=== PATIENT | male | born 1935 | race Caucasian/White ===

== ENCOUNTER 2020-03-06 00:31 | Inpatient (IN) ==
[2020-03-06 01:17] LABS: Basophils % 0.5 %; Eosinophils # 0.1 K/mcL (0.0-0.6); Eosinophils % 1.7 %; Hemoglobin 12.2 g/dL (12.9-16.9); Immature Granulocytes % 0.3 % (0-4); Lymphocytes # 1.3 K/mcL (0.6-4.6); Lymphocytes % 19.2 %; Mean Corpuscular HGB Conc 33.9 g/dL (31.6-35.5); Mean Corpuscular Volume 97.3 fL (83.0-100.0); Mean Platelet Volume 9.6 fL (9.4-12.4); Monocytes # 0.5 K/mcL (0.0-1.3); Monocytes % 7.9 %; Neutrophils # 4.7 K/mcL (1.6-8.9); Platelet Count 204 K/mcL (140-400); Segmented Neutrophils % 70.4 %; White Blood Count 6.6 K/mcL (4.3-11.1)
[2020-03-06 01:26] LABS: Alanine Aminotransferase 31 Units/L (7-52); Albumin 3.5 g/dL (3.5-5.7); Albumin/Globulin Ratio 1.3 (1.1-2.2); Alkaline Phosphatase 51 Units/L (34-104); Aspartate Amino Transferase 32 Units/L (13-39); BUN/Creatinine Ratio 21 (6-26); Bilirubin,Total 0.6 mg/dL (0.3-1.0); Blood Urea Nitrogen 29 mg/dL (8-23); Calcium 8.5 mg/dL (8.6-10.3); Carbon Dioxide 20 mEq/L (23-29); Chloride 103 mEq/L (98-107); Globulin 2.8 g/dL (2.4-3.5); Glucose 147 mg/dL (70-105); Osmolality,Calculated 285 (280-300); Sodium 133 mEq/L (136-145); Total Protein 6.3 g/dL (6.4-8.9); eGFR For African Americans 59 (> 60); eGFR For Non-African Americans 49 (> 60)
[2020-03-06 01:27] LABS: Troponin I < 0.03 ng/mL (< 0.04)
[2020-03-06] MEDS ORDERED: Albuterol 2.5 MG/3 ML NEBULIZER IH ONE (01:40)
[2020-03-06 03:28] LABS: Adenovirus Not Detected (Not Detect); Coronavirus 229E Not Detected (Not Detect); Coronavirus HKU1 Not Detected (Not Detect); Coronavirus NL63 Not Detected (Not Detect); Coronavirus OC43 Not Detected (Not Detect)
[2020-03-06 03:30] LABS: Bordetella Pertussis Not Detected (Not Detect); Chlamydophila pneumoniae Not Detected (Not Detect); Human Metapneumovirus Not Detected (Not Detect); Human Rhinovirus/Enterovirus Not Detected (Not Detect); Influenza A Subtype 2009 H1 Not Detected (Not Detect); Influenza B Not Detected (Not Detect); Mycoplasma pneumoniae Not Detected (Not Detect); Parainfluenza Virus 1 Not Detected (Not Detect); Parainfluenza Virus 2 Not Detected (Not Detect); Parainfluenza Virus 3 Not Detected (Not Detect); Parainfluenza Virus 4 Not Detected (Not Detect); Respiratory Syncytial Virus Not Detected (Not Detect)
[2020-03-06] MEDS ORDERED: Naloxone 0.4 MG/ML INJ IVP PRN (03:34)
[2020-03-06] MEDS ORDERED: Ondansetron 4 MG/2 ML VIAL IVP PRN (03:34)
[2020-03-06 06:00] LABS: Basophils % 0.3 %; Eosinophils # 0.1 K/mcL (0.0-0.6); Eosinophils % 1.3 %; Hematocrit 34.1 % (37.5-50.1); Hemoglobin 11.6 g/dL (12.9-16.9); Immature Granulocytes % 0.6 % (0-4); Lymphocytes # 1.3 K/mcL (0.6-4.6); Lymphocytes % 20.4 %; Mean Corpuscular Volume 97.2 fL (83.0-100.0); Mean Platelet Volume 9.6 fL (9.4-12.4); Monocytes # 0.4 K/mcL (0.0-1.3); Monocytes % 7.1 %; Neutrophils # 4.4 K/mcL (1.6-8.9); Platelet Count 177 K/mcL (140-400); Red Blood Count 3.51 M/mcL (4.19-5.50); Segmented Neutrophils % 70.3 %; White Blood Count 6.2 K/mcL (4.3-11.1)
[2020-03-06 06:09] LABS: INR 1.1; Prothrombin Time 12.8 Seconds (9.4-12.1)
[2020-03-06 06:10] LABS: Activated Partial Thrombo Time 28.5 Seconds (26.0-36.0)
[2020-03-06 06:21] LABS: Alanine Aminotransferase 27 Units/L (7-52); Albumin 3.4 g/dL (3.5-5.7); Albumin/Globulin Ratio 1.3 (1.1-2.2); Alkaline Phosphatase 50 Units/L (34-104); Aspartate Amino Transferase 31 Units/L (13-39); BUN/Creatinine Ratio 21 (6-26); Bilirubin,Total 0.5 mg/dL (0.3-1.0); Blood Urea Nitrogen 28 mg/dL (8-23); Calcium 8.5 mg/dL (8.6-10.3); Carbon Dioxide 20 mEq/L (23-29); Chloride 105 mEq/L (98-107); Globulin 2.7 g/dL (2.4-3.5); Glucose 158 mg/dL (70-105); Magnesium 1.9 mg/dL (1.6-2.6); Osmolality,Calculated 289 (280-300); Phosphorous 2.6 mg/dL (2.7-4.5); Potassium 4.3 mEq/L (3.5-5.1); Sodium 135 mEq/L (136-145); Total Protein 6.1 g/dL (6.4-8.9); eGFR For African Americans > 60 (> 60); eGFR For Non-African Americans 52 (> 60)
[2020-03-06 06:22] LABS: % Iron Saturation 6 % (20-55); Iron 15 mcg/dL (65-175); Transferrin 186 mg/dL (203-362)
[2020-03-06] MEDS: *HR* Enoxaparin 40 MG/0.4 ML SYRINGE SQ SCH (06:37)
[2020-03-06 06:47] LABS: Folate > 22.3 ng/mL (3.0-16.0); Vitamin B12 396 pg/mL (250-1100)
[2020-03-06 07:30] LABS: Ferritin 321 ng/mL (20-250); Lactate Dehydrogenase 268 Units/L (140-271)
[2020-03-06] MEDS: Dexamethasone 4 MG/ML VIAL IVP SCH (09:31)
[2020-03-06 09:46] LABS: C-Reactive Protein 51 mg/L (Less than 10)
[2020-03-06] MEDS: Insulin LISPRO 300 UNITS/3 ML VIAL SQ SCH (16:06)
[2020-03-06] MEDS: Famotidine 20 MG TABLET PO SCH (20:26)
[2020-03-06] MEDS ORDERED: *HR* Dextrose 50 % in Water (Vial) 50 ML VIAL IVP PRN (20:47)
[2020-03-06] MEDS ORDERED: Dextrose Gel 15 GM/37.5 ML TUBE PO PRN ×2 (20:47)
[2020-03-06] MEDS ORDERED: D5% in Water 1,000 ML IVC PRN (20:47)
[2020-03-06] MEDS ORDERED: Insulin LISPRO 300 UNITS/3 ML VIAL SQ SCH (21:00)
[2020-03-06] MEDS ORDERED: Fluticasone Propionate Nasal 50 MCG/SPRAY BOTTLE NS SCH (21:00)
[2020-03-07] MEDS: *HR* Enoxaparin 40 MG/0.4 ML SYRINGE SQ SCH (05:02)
[2020-03-07] MEDS: Famotidine 20 MG TABLET PO SCH (07:59)
[2020-03-07] MEDS: Dexamethasone 4 MG/ML VIAL IVP SCH (07:59)
[2020-03-07] MEDS: Insulin LISPRO 300 UNITS/3 ML VIAL SQ SCH ×2 (08:23→12:50)
[2020-03-07 08:39] VITALS: BP 163/93
[2020-03-07] MEDS ORDERED: Aspirin Enteric Coated 81 MG Tablet PO SCH (09:00)
[2020-03-07] MEDS ORDERED: allopurinoL 300 MG TABLET PO SCH (09:00)
[2020-03-07] MEDS ORDERED: Cholecalciferol (D-3) 1,000 UNIT (25MCG) TABLET PO SCH (09:00)
[2020-03-07] MEDS ORDERED: lisinopriL 5 MG TABLET PO SCH (09:00)
[2020-03-07 09:36] LABS: Basophils % 0.3 %; Hematocrit 35.8 % (37.5-50.1); Hemoglobin 12.8 g/dL (12.9-16.9); Immature Granulocytes % 0.3 % (0-4); Lymphocytes # 1.1 K/mcL (0.6-4.6); Lymphocytes % 17.4 %; Mean Corpuscular HGB Conc 35.8 g/dL (31.6-35.5); Mean Corpuscular Hemoglobin 33.7 pg (28.0-33.3); Mean Corpuscular Volume 94.2 fL (83.0-100.0); Mean Platelet Volume 9.8 fL (9.4-12.4); Monocytes # 0.2 K/mcL (0.0-1.3); Monocytes % 2.6 %; Neutrophils # 5.1 K/mcL (1.6-8.9); Platelet Count 246 K/mcL (140-400); Red Cell Distribution Width 12.9 % (11.5-14.5); Segmented Neutrophils % 79.4 %; White Blood Count 6.4 K/mcL (4.3-11.1)
[2020-03-07 09:56] LABS: BUN/Creatinine Ratio 26 (6-26); Blood Urea Nitrogen 36 mg/dL (8-23); Calcium 8.5 mg/dL (8.6-10.3); Carbon Dioxide 18 mEq/L (23-29); Chloride 103 mEq/L (98-107); Glucose 240 mg/dL (70-105); Osmolality,Calculated 290 (280-300); Phosphorous 3.3 mg/dL (2.7-4.5); Platelet Estimate Normal (Normal); Potassium 4.3 mEq/L (3.5-5.1); Sodium 132 mEq/L (136-145); eGFR For African Americans > 60 (> 60); eGFR For Non-African Americans 50 (> 60)
== END 2020-03-07 13:28 | disposition home or self-care (01) | DRG 177 ==
LOC: EMEROOARM 00:31 → 2NENU 00:31 → SUATTDRO 03:41 → 2NENU 04:20
PROVIDERS: ADMIT Internal Medicine; ATTEND Family Medicine